=== PATIENT | male | born 1945 | race Caucasian/White ===

== ENCOUNTER → 2019-11-05 | Emergency (ER) | payer OTHER ==
[~2019-11-05] VITALS: Ht 167.6 cm; Wt 77.1 kg
[~2019-11-05] MED LIST: ATORVASTATIN CA20 MG; GLIPIZIDE ER10 MG; INTEGRA PLUS C1 EACH PO; LISINOPRIL10 MG; PROTONIX40 MG PO; VERAPAMIL ER120 MG
== END | disposition home or self-care (01) ==
LOC: ER 20:11
DX: S61.022A Laceration with foreign body of left thumb without damage to nail, initial encounter (principal); W26.8XXA Contact with other sharp object(s), not elsewhere classified, initial encounter; Y93.89 Activity, other specified; Y92.098 Other place in other non-institutional residence as the place of occurrence of the external cause; Y99.8 Other external cause status

== ENCOUNTER 2019-11-13 15:38 | Emergency (ER) | payer OTHER ==
[~2019-11-13] VITALS: Ht 167.6 cm; Wt 77.1 kg
== END 2019-11-13 17:20 | disposition home or self-care (01) ==
LOC: ER 15:38
DX: Z48.02 Encounter for removal of sutures (principal)

== ENCOUNTER → 2020-04-04 11:25 | Outpatient (CLI) | payer OTHER | END | disposition home or self-care (01) | LOC: LAB 11:25 | DX: R97.20 Elevated prostate specific antigen [PSA] (principal) ==

== ENCOUNTER 2020-04-08 10:57 | Outpatient (CLI) | payer OTHER | END 2020-04-08 11:02 | disposition home or self-care (01) | LOC: LAB 10:57 | DX: R33.8 Other retention of urine (principal) ==

== ENCOUNTER 2020-04-10 08:31 | Outpatient (CLI) | payer OTHER | END 2020-04-10 08:38 | disposition home or self-care (01) | LOC: LAB 08:31 | DX: N18.9 Chronic kidney disease, unspecified (principal) ==

== ENCOUNTER 2020-04-11 07:11 | Outpatient (CLI) | payer OTHER | END 2020-04-11 07:17 | disposition home or self-care (01) | LOC: SONOGRAMA 07:11 | DX: R97.20 Elevated prostate specific antigen [PSA] (principal) ==

== ENCOUNTER 2020-04-29 11:07 | Outpatient (CLI) | payer OTHER ==
[~2020-04-29 11:07] MED LIST changes: -METFORMIN HCL500 M3
[2020-04-29] MEDS ORDERED: METFORMIN HCL500 M3 (22:52)
== END 2020-04-29 11:14 | disposition home or self-care (01) ==
LOC: LAB 11:07
PROVIDERS: ATTEND Urology
DX: N30.00 Acute cystitis without hematuria (principal)

== ENCOUNTER 2020-04-29 22:35 | Emergency (ER) | payer OTHER ==
[~2020-04-29] VITALS: Ht 198.1 cm; Wt 63.5 kg
[2020-04-29] MEDS ORDERED: METFORMIN HCL500 M3 (22:52)
== END 2020-04-30 00:01 | disposition home or self-care (01) ==
LOC: ER 22:35
DX: R33.8 Other retention of urine (principal)

== ENCOUNTER → 2020-04-29 | Outpatient (CLI) | payer OTHER ==
[~2020-04-29] MED LIST changes: +METFORMIN HCL500 M3
== END | disposition home or self-care (01) ==
LOC: TOM 12:14
PROVIDERS: ATTEND Urology
DX: C61 Malignant neoplasm of prostate (principal)

== ENCOUNTER 2020-05-01 07:18 | Outpatient (CLI) | payer OTHER ==
[~2020-05-01 07:18] MED LIST changes: +METFORMIN HCL500 M3
== END 2020-05-01 07:25 | disposition home or self-care (01) ==
LOC: NUCLEAR 07:18
PROVIDERS: ATTEND Urology
DX: C61 Malignant neoplasm of prostate (principal)
CPT/HCPCS: 78803; A9503

== ENCOUNTER 2020-05-15 10:38 | Outpatient (CLI) | payer OTHER | END 2020-05-15 10:43 | disposition home or self-care (01) | LOC: LAB 10:38 | PROVIDERS: ATTEND Urology | DX: N30.00 Acute cystitis without hematuria (principal); B96.89 Other specified bacterial agents as the cause of diseases classified elsewhere ==

== ENCOUNTER 2020-05-29 16:32 | Emergency (ER) | payer OTHER ==
[~2020-05-29] VITALS: Ht 167.6 cm; Wt 57.6 kg
== END 2020-05-29 17:21 | disposition home or self-care (01) ==
LOC: ER 16:32
DX: T83.091A Other mechanical complication of indwelling urethral catheter, initial encounter (principal)

== ENCOUNTER 2020-07-04 12:54 | Emergency (ER) | payer OTHER ==
[~2020-07-04] VITALS: Ht 165.1 cm; Wt 59.4 kg
== END 2020-07-04 14:14 | disposition home or self-care (01) ==
LOC: ER 12:54
DX: Z46.6 Encounter for fitting and adjustment of urinary device (principal)

== ENCOUNTER 2020-08-01 20:46 | Emergency (ER) | payer OTHER ==
[~2020-08-01] VITALS: Ht 167.6 cm; Wt 59.0 kg
== END 2020-08-01 22:18 | disposition home or self-care (01) ==
LOC: ER 20:46
DX: T83.018A Breakdown (mechanical) of other urinary catheter, initial encounter (principal); N40.1 Benign prostatic hyperplasia with lower urinary tract symptoms

== ENCOUNTER 2020-09-05 13:07 | Emergency (ER) | payer OTHER ==
[~2020-09-05] VITALS: Ht 167.6 cm; Wt 54.4 kg
== END 2020-09-05 14:04 | disposition home or self-care (01) ==
LOC: ER 13:07
DX: T83.098A Other mechanical complication of other urinary catheter, initial encounter (principal)

== ENCOUNTER → 2020-09-26 12:55 | Outpatient (CLI) | payer OTHER | END | disposition home or self-care (01) | LOC: LAB 12:55 | PROVIDERS: ATTEND Emergency Medicine | DX: D64.89 Other specified anemias (principal); E78.2 Mixed hyperlipidemia; N39.0 Urinary tract infection, site not specified; Z12.11 Encounter for screening for malignant neoplasm of colon; R10.84 Generalized abdominal pain; N40.0 Benign prostatic hyperplasia without lower urinary tract symptoms ==

== ENCOUNTER 2020-09-27 11:29 | Outpatient (CLI) | payer OTHER | END 2020-09-27 15:00 | disposition home or self-care (01) | LOC: LAB 11:29 | PROVIDERS: ATTEND Emergency Medicine | DX: D64.89 Other specified anemias (principal); E78.2 Mixed hyperlipidemia; N39.0 Urinary tract infection, site not specified; Z12.11 Encounter for screening for malignant neoplasm of colon; R10.84 Generalized abdominal pain; N40.0 Benign prostatic hyperplasia without lower urinary tract symptoms ==

== ENCOUNTER 2020-10-10 12:14 | Emergency (ER) | payer OTHER ==
[~2020-10-10] VITALS: Ht 167.6 cm; Wt 64.0 kg
== END 2020-10-10 13:43 | disposition home or self-care (01) ==
LOC: ER 12:14
DX: Z46.6 Encounter for fitting and adjustment of urinary device (principal)

== ENCOUNTER 2020-11-07 11:01 | Emergency (ER) | payer OTHER ==
[~2020-11-07] VITALS: Ht 167.6 cm; Wt 63.5 kg
== END 2020-11-07 12:07 | disposition home or self-care (01) ==
LOC: ER 11:01
DX: N40.0 Benign prostatic hyperplasia without lower urinary tract symptoms (principal); Z46.6 Encounter for fitting and adjustment of urinary device

== ENCOUNTER 2020-12-05 11:42 | Emergency (ER) | payer OTHER ==
[~2020-12-05] VITALS: Ht 167.6 cm; Wt 63.5 kg
== END 2020-12-05 13:24 | disposition home or self-care (01) ==
LOC: ER 11:42
DX: Z46.6 Encounter for fitting and adjustment of urinary device (principal)

== ENCOUNTER 2021-01-05 11:12 | Emergency (ER) | payer OTHER ==
[~2021-01-05] VITALS: Ht 167.6 cm; Wt 63.5 kg
== END 2021-01-05 13:10 | disposition home or self-care (01) ==
LOC: ER 11:12
DX: T83.018A Breakdown (mechanical) of other urinary catheter, initial encounter (principal)

== ENCOUNTER 2021-02-03 10:54 | Emergency (ER) | payer OTHER ==
[~2021-02-03] VITALS: Ht 167.6 cm; Wt 68.0 kg
== END 2021-02-03 11:33 | disposition home or self-care (01) ==
LOC: ER 10:54
DX: T83.018A Breakdown (mechanical) of other urinary catheter, initial encounter (principal); N13.8 Other obstructive and reflux uropathy; N40.0 Benign prostatic hyperplasia without lower urinary tract symptoms

== ENCOUNTER 2021-03-05 11:30 | Emergency (ER) | payer OTHER ==
[~2021-03-05] VITALS: Ht 167.6 cm; Wt 68.0 kg
== END 2021-03-05 14:27 | disposition home or self-care (01) ==
LOC: ER 11:30
DX: T83.091A Other mechanical complication of indwelling urethral catheter, initial encounter (principal)

== ENCOUNTER 2021-04-10 14:09 | Emergency (ER) | payer OTHER ==
[~2021-04-10] VITALS: Ht 167.6 cm; Wt 68.0 kg
== END 2021-04-10 15:10 | disposition home or self-care (01) ==
LOC: ER 14:09
DX: N32.89 Other specified disorders of bladder (principal)

== ENCOUNTER 2021-04-11 08:28 | Emergency (ER) | payer OTHER ==
[~2021-04-11] VITALS: Ht 167.6 cm; Wt 67.6 kg
== END 2021-04-11 11:04 | disposition home or self-care (01) ==
LOC: ER 08:28
DX: Z46.6 Encounter for fitting and adjustment of urinary device (principal)

== ENCOUNTER 2021-05-09 10:19 | Emergency (ER) | payer OTHER ==
[~2021-05-09] VITALS: Ht 167.6 cm; Wt 68.0 kg
== END 2021-05-09 16:00 | disposition home or self-care (01) ==
LOC: ER 10:19
DX: N40.0 Benign prostatic hyperplasia without lower urinary tract symptoms (principal); Z46.6 Encounter for fitting and adjustment of urinary device

== ENCOUNTER 2021-06-13 08:40 | Emergency (ER) | payer OTHER ==
[~2021-06-13] VITALS: Ht 167.6 cm; Wt 68.0 kg
== END 2021-06-13 09:45 | disposition home or self-care (01) ==
LOC: ER 08:40
DX: T83.018A Breakdown (mechanical) of other urinary catheter, initial encounter (principal)

== ENCOUNTER → 2021-07-11 | Emergency (ER) | payer OTHER ==
[~2021-07-11] VITALS: Ht 167.6 cm; Wt 68.0 kg
== END | disposition home or self-care (01) ==
LOC: ER 08:28
DX: Z46.6 Encounter for fitting and adjustment of urinary device (principal)

== ENCOUNTER 2021-08-09 09:03 | Emergency (ER) | payer OTHER ==
[~2021-08-09] VITALS: Ht 167.6 cm; Wt 68.0 kg
== END 2021-08-09 10:40 | disposition home or self-care (01) ==
LOC: ER 09:03
DX: T83.098A Other mechanical complication of other urinary catheter, initial encounter (principal)

== ENCOUNTER 2021-09-05 08:12 | Emergency (ER) | payer OTHER ==
[~2021-09-05] VITALS: Ht 167.6 cm; Wt 68.0 kg
== END 2021-09-05 09:29 | disposition home or self-care (01) ==
LOC: ER 08:12
DX: Z46.6 Encounter for fitting and adjustment of urinary device (principal)

== ENCOUNTER 2021-10-03 08:06 | Emergency (ER) | payer OTHER ==
[~2021-10-03] VITALS: Ht 167.6 cm; Wt 68.0 kg
== END 2021-10-03 09:05 | disposition home or self-care (01) ==
LOC: ER 08:06
DX: Z46.6 Encounter for fitting and adjustment of urinary device (principal)

== ENCOUNTER 2021-11-01 08:06 | Emergency (ER) | payer OTHER ==
[~2021-11-01] VITALS: Ht 167.6 cm; Wt 68.0 kg
== END 2021-11-01 09:32 | disposition home or self-care (01) ==
LOC: ER 08:06
DX: T83.091A Other mechanical complication of indwelling urethral catheter, initial encounter (principal); N40.0 Benign prostatic hyperplasia without lower urinary tract symptoms; R97.20 Elevated prostate specific antigen [PSA]

== ENCOUNTER 2021-12-06 11:02 | Emergency (ER) | payer OTHER ==
[~2021-12-06] VITALS: Ht 167.6 cm; Wt 68.0 kg
== END 2021-12-06 12:07 | disposition home or self-care (01) ==
LOC: ER 11:02
DX: R33.8 Other retention of urine (principal); N40.0 Benign prostatic hyperplasia without lower urinary tract symptoms

== ENCOUNTER 2022-01-10 09:13 | Emergency (ER) | payer OTHER ==
[~2022-01-10] VITALS: Ht 167.6 cm; Wt 70.3 kg
== END 2022-01-10 11:22 | disposition home or self-care (01) ==
LOC: ER 09:13
DX: Z46.6 Encounter for fitting and adjustment of urinary device (principal); I10 Essential (primary) hypertension; E11.9 Type 2 diabetes mellitus without complications; N40.0 Benign prostatic hyperplasia without lower urinary tract symptoms

== ENCOUNTER 2022-02-07 09:01 | Emergency (ER) | payer OTHER ==
[~2022-02-07] VITALS: Ht 167.6 cm; Wt 66.2 kg
== END 2022-02-07 11:01 | disposition home or self-care (01) ==
LOC: ER 09:01
DX: T83.098D Other mechanical complication of other urinary catheter, subsequent encounter (principal); N40.1 Benign prostatic hyperplasia with lower urinary tract symptoms

== ENCOUNTER 2022-03-07 09:10 | Emergency (ER) | payer OTHER ==
[~2022-03-07] VITALS: Ht 167.6 cm; Wt 65.8 kg
== END 2022-03-07 10:16 | disposition home or self-care (01) ==
LOC: ER 09:10
DX: T83.9XXA Unspecified complication of genitourinary prosthetic device, implant and graft, initial encounter (principal)

== ENCOUNTER 2022-03-27 16:03 | Emergency (ER) | payer OTHER ==
[~2022-03-27] VITALS: Ht 167.6 cm; Wt 66.2 kg
[~2022-03-27 16:03] MED LIST changes: -CIPRO500 MG; -LOKELMA10 GM PO
[2022-03-27] MEDS ORDERED: CIPRO500 MG (16:09)
[2022-03-27] MEDS ORDERED: LOKELMA10 GM PO (19:06)
== END 2022-03-27 19:41 | disposition home or self-care (01) ==
LOC: ER 16:03
DX: R55 Syncope and collapse (principal); Z79.84 Long term (current) use of oral hypoglycemic drugs; I10 Essential (primary) hypertension; E11.9 Type 2 diabetes mellitus without complications; E87.5 Hyperkalemia; E11.65 Type 2 diabetes mellitus with hyperglycemia

== ENCOUNTER → 2022-03-27 | Emergency (ER) | payer OTHER ==
[~2022-03-27] VITALS: Ht 167.6 cm; Wt 67.1 kg
[~2022-03-27] MED LIST changes: +CIPRO500 MG; +LOKELMA10 GM PO
== END | disposition left against medical advice (07) ==
LOC: ER 22:51
DX: Z53.21 Procedure and treatment not carried out due to patient leaving prior to being seen by health care provider (principal)

== ENCOUNTER 2022-04-10 12:57 | Emergency (ER) | payer OTHER ==
[~2022-04-10] VITALS: Ht 167.6 cm; Wt 66.7 kg
[~2022-04-10 12:57] MED LIST changes: +CIPRO500 MG; +LOKELMA10 GM PO
== END 2022-04-10 14:27 | disposition home or self-care (01) ==
LOC: ER 12:57
DX: N40.0 Benign prostatic hyperplasia without lower urinary tract symptoms (principal); E11.9 Type 2 diabetes mellitus without complications; Z79.84 Long term (current) use of oral hypoglycemic drugs; I10 Essential (primary) hypertension

== ENCOUNTER 2022-05-08 08:03 | Emergency (ER) | payer OTHER ==
[~2022-05-08] VITALS: Ht 167.6 cm; Wt 65.8 kg
== END 2022-05-08 12:10 | disposition home or self-care (01) ==
LOC: ER 08:03
DX: N40.0 Benign prostatic hyperplasia without lower urinary tract symptoms (principal); T83.89XA Other specified complication of genitourinary prosthetic devices, implants and grafts, initial encounter; I10 Essential (primary) hypertension; E11.9 Type 2 diabetes mellitus without complications

== ENCOUNTER → 2022-06-05 | Emergency (ER) | payer OTHER ==
[~2022-06-05] VITALS: Ht 167.6 cm; Wt 67.1 kg
== END | disposition home or self-care (01) ==
LOC: ER 08:44
DX: N40.1 Benign prostatic hyperplasia with lower urinary tract symptoms (principal); T83.011A Breakdown (mechanical) of indwelling urethral catheter, initial encounter

== ENCOUNTER 2022-07-04 08:01 | Emergency (ER) | payer OTHER ==
[~2022-07-04] VITALS: Ht 167.6 cm; Wt 65.8 kg
== END 2022-07-04 10:04 | disposition home or self-care (01) ==
LOC: ER 08:01
DX: T83.9XXA Unspecified complication of genitourinary prosthetic device, implant and graft, initial encounter (principal); N40.0 Benign prostatic hyperplasia without lower urinary tract symptoms; E11.9 Type 2 diabetes mellitus without complications; Z79.84 Long term (current) use of oral hypoglycemic drugs; I10 Essential (primary) hypertension

== ENCOUNTER 2022-07-12 13:43 | Emergency (ER) | payer OTHER ==
[~2022-07-12] VITALS: Ht 172.7 cm; Wt 66.2 kg
== END 2022-07-12 15:12 | disposition home or self-care (01) ==
LOC: ER 13:43
DX: R33.9 Retention of urine, unspecified (principal); B96.20 Unspecified Escherichia coli [E. coli] as the cause of diseases classified elsewhere; B96.29 Other Escherichia coli [E. coli] as the cause of diseases classified elsewhere; I10 Essential (primary) hypertension; E11.9 Type 2 diabetes mellitus without complications; Z79.84 Long term (current) use of oral hypoglycemic drugs

== ENCOUNTER 2022-08-30 20:57 | Emergency (ER) | payer OTHER ==
[~2022-08-30] VITALS: Ht 167.6 cm; Wt 65.8 kg
== END 2022-08-30 22:49 | disposition home or self-care (01) ==
LOC: ER 20:57
DX: R33.9 Retention of urine, unspecified (principal); T83.011A Breakdown (mechanical) of indwelling urethral catheter, initial encounter; I10 Essential (primary) hypertension

== ENCOUNTER 2022-11-06 08:06 | Emergency (ER) | payer OTHER ==
[~2022-11-06] VITALS: Ht 167.6 cm; Wt 67.1 kg
== END 2022-11-06 09:35 | disposition home or self-care (01) ==
LOC: ER 08:06
DX: R33.9 Retention of urine, unspecified (principal); Z46.6 Encounter for fitting and adjustment of urinary device; E11.9 Type 2 diabetes mellitus without complications; Z79.84 Long term (current) use of oral hypoglycemic drugs; I10 Essential (primary) hypertension

== ENCOUNTER 2022-12-09 08:51 | Emergency (ER) | payer OTHER ==
[~2022-12-09] VITALS: Ht 167.6 cm; Wt 65.8 kg
== END 2022-12-09 09:32 | disposition home or self-care (01) ==
LOC: ER 08:51
DX: T83.9XXA Unspecified complication of genitourinary prosthetic device, implant and graft, initial encounter (principal); I10 Essential (primary) hypertension; E11.9 Type 2 diabetes mellitus without complications; Z79.84 Long term (current) use of oral hypoglycemic drugs

== ENCOUNTER → 2022-12-21 13:16 | Outpatient (CLI) | payer OTHER | END | disposition home or self-care (01) | LOC: LAB 13:16 | PROVIDERS: ATTEND Urology | DX: N30.00 Acute cystitis without hematuria (principal) ==

== ENCOUNTER 2023-01-15 07:05 | Emergency (ER) | payer OTHER ==
[~2023-01-15] VITALS: Ht 167.6 cm; Wt 65.8 kg
== END 2023-01-15 08:05 | disposition home or self-care (01) ==
LOC: ER 07:05
DX: N39.0 Urinary tract infection, site not specified (principal); T83.098A Other mechanical complication of other urinary catheter, initial encounter; N40.1 Benign prostatic hyperplasia with lower urinary tract symptoms

== ENCOUNTER 2023-02-12 12:37 | Emergency (ER) | payer OTHER ==
[~2023-02-12] VITALS: Ht 167.6 cm; Wt 65.8 kg
== END 2023-02-12 14:06 | disposition home or self-care (01) ==
LOC: ER 12:37
DX: T83.098A Other mechanical complication of other urinary catheter, initial encounter (principal); N40.0 Benign prostatic hyperplasia without lower urinary tract symptoms; E11.65 Type 2 diabetes mellitus with hyperglycemia; I10 Essential (primary) hypertension

== ENCOUNTER → 2023-02-21 13:39 | Outpatient (CLI) | payer OTHER | END | disposition home or self-care (01) | LOC: LAB 13:39 | PROVIDERS: ATTEND Urology | DX: N30.00 Acute cystitis without hematuria (principal) ==

== ENCOUNTER 2023-03-26 07:03 | Emergency (ER) | payer OTHER ==
[~2023-03-26] VITALS: Ht 167.6 cm; Wt 68.0 kg
== END 2023-03-26 08:53 | disposition home or self-care (01) ==
LOC: ER 07:03
DX: T83.098A Other mechanical complication of other urinary catheter, initial encounter (principal); N40.0 Benign prostatic hyperplasia without lower urinary tract symptoms; I10 Essential (primary) hypertension; E11.9 Type 2 diabetes mellitus without complications; Z79.84 Long term (current) use of oral hypoglycemic drugs; R33.9 Retention of urine, unspecified

== ENCOUNTER 2023-04-30 08:29 | Emergency (ER) | payer OTHER ==
[~2023-04-30] VITALS: Ht 167.6 cm; Wt 65.8 kg
== END 2023-04-30 09:18 | disposition home or self-care (01) ==
LOC: ER 08:29
DX: T83.018A Breakdown (mechanical) of other urinary catheter, initial encounter (principal); R33.8 Other retention of urine

== ENCOUNTER 2023-05-16 09:36 | Emergency (ER) | payer OTHER ==
[~2023-05-16] VITALS: Ht 167.6 cm; Wt 68.0 kg
[2023-05-16] MEDS ORDERED: TAMS0.4C PO (09:45)
== END 2023-05-16 10:32 | disposition home or self-care (01) ==
LOC: ER 09:36
DX: T83.091A Other mechanical complication of indwelling urethral catheter, initial encounter (principal); E78.00 Pure hypercholesterolemia, unspecified; I10 Essential (primary) hypertension; E11.9 Type 2 diabetes mellitus without complications; Z79.84 Long term (current) use of oral hypoglycemic drugs

== ENCOUNTER 2023-05-26 16:04 | Outpatient (CLI) | payer OTHER ==
[~2023-05-26 16:04] MED LIST changes: +TAMS0.4C PO
== END 2023-05-26 16:10 | disposition home or self-care (01) ==
LOC: PPH VACUNA 16:04 → LAB 16:04
PROVIDERS: ATTEND Urology
DX: E55.9 Vitamin D deficiency, unspecified (principal); I10 Essential (primary) hypertension; D64.9 Anemia, unspecified; E78.5 Hyperlipidemia, unspecified; N39.0 Urinary tract infection, site not specified; E11.69 Type 2 diabetes mellitus with other specified complication; E03.9 Hypothyroidism, unspecified; R19.5 Other fecal abnormalities; R79.1 Abnormal coagulation profile

== ENCOUNTER 2023-06-01 08:00 | Inpatient (IN) | payer OTHER ==
[~2023-06-01] VITALS: Ht 167.6 cm; Wt 68.0 kg
[2023-06-08] MEDS ORDERED: FINASTERIDE5 MG (08:02)
[2023-06-08] MEDS ORDERED: NITROFURANTOIN100 M1 (08:03)
== END 2023-06-09 13:19 | disposition home or self-care (01) | DRG 714 ==
LOC: SURH 06-07 08:00 → SURG 06-08 06:00 → O/R 06-08 06:00 → SURH 06-08 08:00 → SURG 06-08 15:00
PROVIDERS: ADMIT Urology; ATTEND Urology
PROC: 0VT08ZZ Resection of Prostate, Via Natural or Artificial Opening Endoscopic (ICD-10-PCS; principal; 2023-06-08 10:30)
DX: C61 Malignant neoplasm of prostate (principal); Z20.822 Contact with and (suspected) exposure to COVID-19; R33.8 Other retention of urine

== ENCOUNTER 2023-07-21 11:37 | Outpatient (CLI) | payer OTHER ==
[~2023-07-21 11:37] MED LIST changes: +FINASTERIDE5 MG; +NITROFURANTOIN100 M1
== END 2023-07-21 11:39 | disposition home or self-care (01) ==
LOC: LAB 11:37
PROVIDERS: ATTEND Urology
DX: N39.0 Urinary tract infection, site not specified (principal)

== ENCOUNTER 2024-02-22 12:32 | Emergency (ER) | payer OTHER ==
[~2024-02-22] VITALS: Ht 167.6 cm; Wt 66.7 kg
[2024-02-22 14:53] LABS: HEMATOCRIT 35.6 % (39.0-48.0); HEMOGLOBIN 12.2 g/dL (13-16.00); MEAN CELL VOLUME 90.8 fL (80.0-100.00); MEAN CORPUSCULAR HEMOGLOBIN 31.2 pg (27.00-32.0); MEAN CORPUSCULAR HGB CONC 34.3 g/dl (32.0-36.0); PLATELET COUNT 245 K/uL (150-450); RED BLOOD COUNT 3.93 M/uL (4.00-6.00); RED CELL DISTRIBUTION WIDTH 12.7 % (11.5-14.5)
[2024-02-22 14:55] LABS: INR 1.04; PROTHROMBIN TIME 10.9 SECONDS (9.0-11.5)
[2024-02-22 15:16] LABS: ALBUMIN 3.6 gm/dL (3.4-5.0); BILIRUBIN TOTAL 0.72 mg/dL (0.3-1.2); BILIRUBIN,CONJUGATED 0.17 mg/dL (0.0-0.2); BILIRUBIN,UNCONJUGATED 0.55 mg/dL (0.0-0.6); CALCIUM 9.4 mg/dL (8.5-10.1); CREATININE SERUM 1.18 mg/dL (0.70-1.30); GFR 60.02; GLOBULINA 4.5 G/DL (2.4-3.5); POTASSIUM 5.11 mEq/L (3.5-5.1); TOTAL PROTEIN 8.1 gm/dL (6.4-8.2)
== END 2024-02-22 23:40 | disposition home or self-care (01) ==
LOC: ER 12:32
PROVIDERS: Emergency Medicine
DX: K64.8 Other hemorrhoids (principal); K62.5 Hemorrhage of anus and rectum; Z85.46 Personal history of malignant neoplasm of prostate; I10 Essential (primary) hypertension; E11.65 Type 2 diabetes mellitus with hyperglycemia
CPT/HCPCS: 36415; 74177; Q9965

== ENCOUNTER 2024-03-09 09:24 | Emergency (ER) | payer OTHER ==
[~2024-03-09] VITALS: Ht 167.6 cm; Wt 67.6 kg
[2024-03-09] MEDS ORDERED: VERELAN PM200 MG (09:58)
[2024-03-09] MEDS ORDERED: REMINYL8 MG PO (09:59)
== END 2024-03-09 10:45 | disposition home or self-care (01) ==
LOC: ER 09:25
DX: K64.9 Unspecified hemorrhoids (principal); E11.9 Type 2 diabetes mellitus without complications; Z79.84 Long term (current) use of oral hypoglycemic drugs; I10 Essential (primary) hypertension; E78.00 Pure hypercholesterolemia, unspecified

== ENCOUNTER → 2025-02-16 | Emergency (ER) | payer OTHER ==
[~2025-02-16] VITALS: Ht 167.6 cm; Wt 65.8 kg
[~2025-02-16] MED LIST changes: +REMINYL8 MG PO; +VERELAN PM200 MG
== END | disposition home or self-care (01) ==
LOC: ER 14:12
DX: S72.8X1A Other fracture of right femur, initial encounter for closed fracture (principal); W19.XXXA Unspecified fall, initial encounter; Y93.89 Activity, other specified; Y92.89 Other specified places as the place of occurrence of the external cause; Y99.8 Other external cause status; E11.9 Type 2 diabetes mellitus without complications; Z79.84 Long term (current) use of oral hypoglycemic drugs

== ENCOUNTER 2025-02-18 20:42 | Inpatient (IN) | payer OTHER ==
[~2025-02-18] VITALS: Ht 165.1 cm; Wt 90.7 kg
[2025-02-18] MEDS ORDERED: 0.9 % SODIUM CHLORIDE 1,000 ML IV SCH (22:15)
[2025-02-18] MEDS ORDERED: INSULIN LISPRO 1,000 UNIT/10 ML UNITS SUBCUTANEO PRN (23:00)
[2025-02-18] MEDS ORDERED: MORPHINE SULFATE 2 MG/ML CARTRIDGE IV PRN (23:00)
[2025-02-18] MEDS ORDERED: DEXTROSE 50 % IN WATER 0.5 G/ML DISP.SYRIN IV PRN (23:00)
[2025-02-18 23:16] LABS: HEMATOCRIT 37.3 % (39.0-48.0); HEMOGLOBIN 12.4 g/dL (13-16.00); MEAN CELL VOLUME 91.3 fL (80.0-100.00); MEAN CORPUSCULAR HEMOGLOBIN 30.2 pg (27.00-32.0); MEAN CORPUSCULAR HGB CONC 33.1 g/dl (32.0-36.0); PLATELET COUNT 200 K/uL (150-450); RED BLOOD COUNT 4.09 M/uL (4.00-6.00)
[2025-02-18 23:36] LABS: INR 1.05; PROTHROMBIN TIME 11.4 SECONDS (9.0-11.5)
[2025-02-18 23:38] LABS: ALBUMIN 3.3 gm/dL (3.4-5.0); BILIRUBIN TOTAL 0.59 mg/dL (0.3-1.2); CREATININE SERUM 1.19 mg/dL (0.70-1.30); GFR 59.28; GLOBULINA 4.1 G/DL (2.4-3.5); POTASSIUM 4.29 mEq/L (3.5-5.1); TOTAL PROTEIN 7.4 gm/dL (6.4-8.2)
[2025-02-19 00:41] LABS: PH,URINE 5.5 (5.0-8.0); URINE APPEARANCE Clear; URINE BILIRRUBIN Negative (NEGATIVE); URINE BLOOD Negative; URINE COLOR Yellow; URINE GLUCOSE Negative (NEGATIVE); URINE KETONE Trace (NEGATIVE); URINE LEUKOCYTE Negative; URINE NITRATE Negative; URINE PROTEIN Trace (NEGATIVE)
[2025-02-19 00:46] LABS: URINE BACTERIA 13.4 uL (0.0-1933); URINE CAST 0.29 uL (0.0-1.40); URINE RBC 1.4 uL (0.0-20.8); URINE WBC 2.3 uL (0.0-23.2)
[2025-02-19 05:49] VITALS: BP 158/89; O2SAT 97
[2025-02-19] MEDS ORDERED: MORPHINE SULFATE 4 MG/ML CARTRIDGE IV PRN ×2 (07:00→19:30)
[2025-02-19 08:00] VITALS: BP 130/71; O2SAT 99
[2025-02-19] MEDS ORDERED: ATORVASTATIN CALCIUM 20 MG TABLET PO SCH (09:00)
[2025-02-19] MEDS ORDERED: FAMOTIDINE/PF 20 MG in 0.9 % SODIUM CHLORIDE 8 ML IV PUSH SCH (09:00)
[2025-02-19] MEDS ORDERED: FINASTERIDE 5 MG TABLET PO SCH (09:00)
[2025-02-19] MEDS ORDERED: LISINOPRIL 10 MG TABLET PO SCH (09:00)
[2025-02-19] MEDS ORDERED: INSULIN LISPRO 1,000 UNIT/10 ML UNITS SUBCUTANEO PRN (09:18)
[2025-02-19] MEDS ORDERED: TAMSULOSIN HCL 0.4 MG CAP PO NR (11:00)
[2025-02-19] MEDS ORDERED: VERAPAMIL HCL 40 MG TABLET PO SCH (13:00)
[2025-02-19] MEDS ORDERED: ENOXAPARIN SODIUM 40 MG/0.4 ML SYRINGE SUBCUTANEO NR (13:00)
[2025-02-19] MEDS ORDERED: ONDANSETRON HCL 2 MG/ML VIAL IV PRN (19:30)
[2025-02-19] MEDS ORDERED: OxyCODONE HCL 5 MG TABLET (ROXICODONE) PO PRN (19:30)
[2025-02-19] MEDS ORDERED: SODIUM CHLORIDE 0.45 % 1,000 ML IV SCH (19:30)
[2025-02-19] MEDS ORDERED: MORPHINE SULFATE 2 MG/ML CARTRIDGE IV ONE ×2 (20:00→20:30)
[2025-02-19] MEDS ORDERED: INSULIN GLARGINE,HUM.REC.ANLOG 1,000 UNITS/10 ML UNITS SUBCUTANEO SCH (21:00)
[2025-02-19 22:00] VITALS: BP 127/66; O2SAT 96
[2025-02-20] MEDS ORDERED: ACETAMINOPHEN 500 MG GEL..CAP PO SCH
[2025-02-20 00:19] VITALS: BP 130/64; O2SAT 97
[2025-02-20] MEDS ORDERED: CEFAZOLIN SODIUM 1,000 MG VIAL IV SCH (01:00)
[2025-02-20] MEDS ORDERED: GABAPENTIN 300 MG CAPSULE PO SCH (01:00)
[2025-02-20 05:19] LABS: MEAN CELL VOLUME 91.4 fL (80.0-100.00); PLATELET COUNT 177 K/uL (150-450); RED BLOOD COUNT 3.83 M/uL (4.00-6.00); RED CELL DISTRIBUTION WIDTH 12.7 % (11.5-14.5)
[2025-02-20 05:21] LABS: HEMOGLOBIN 11.5 g/dL (13-16.00)
[2025-02-20 06:02] LABS: CREATININE SERUM 0.74 mg/dL (0.70-1.30); GFR 102.56; POTASSIUM 5.07 mEq/L (3.5-5.1)
[2025-02-20] MEDS ORDERED: PERCOCET 5-3251 EACH PO (07:15)
[2025-02-20] MEDS ORDERED: DUI500 PO (07:15)
[2025-02-20] MEDS ORDERED: ELIQUIS2.5 MG PO (07:15)
[2025-02-20 08:00] VITALS: BP 127/63; O2SAT 96
[2025-02-20] MEDS ORDERED: TAMSULOSIN HCL 0.4 MG CAP PO SCH (09:00)
[2025-02-20] MEDS ORDERED: APIXABAN 2.5 MG TABLET PO SCH (09:00)
[2025-02-20] MEDS ORDERED: SENNOSIDES 1 TAB TABLET PO SCH (09:00)
[2025-02-20 17:23] VITALS: BP 141/69; O2SAT 96
[2025-02-20 23:59] VITALS: BP 133/73; O2SAT 96
[2025-02-21 07:54] VITALS: BP 147/68; O2SAT 97
[2025-02-21] MEDS ORDERED: IRON FUM,PS/FOLIC ACID/VITC/B3 1 CAP CAPSULE PO SCH (09:00)
[2025-02-21 11:27] LABS: HEMATOCRIT 34.3 % (39.0-48.0); HEMOGLOBIN 11.4 g/dL (13-16.00); MEAN CELL VOLUME 90.8 fL (80.0-100.00); MEAN CORPUSCULAR HEMOGLOBIN 30.2 pg (27.00-32.0); MEAN CORPUSCULAR HGB CONC 33.2 g/dl (32.0-36.0); PLATELET COUNT 191 K/uL (150-450); RED BLOOD COUNT 3.77 M/uL (4.00-6.00)
[2025-02-21 16:12] VITALS: BP 95/60; O2SAT 97
== END 2025-02-21 17:39 | disposition home or self-care (01) | DRG 522 ==
LOC: ER 20:44 → SURG 22:56
PROVIDERS: General Practice; Orthopaedic Surgery; ADMIT Student in an Organized Health Care Education/Training Program; ATTEND Student in an Organized Health Care Education/Training Program
PROC: 0QB60ZZ Excision of Right Upper Femur, Open Approach (ICD-10-PCS; 2025-02-19)
PROC: 0QU60JZ Supplement Right Upper Femur with Synthetic Substitute, Open Approach (ICD-10-PCS; 2025-02-19)
PROC: 0SRR0JZ Replacement of Right Hip Joint, Femoral Surface with Synthetic Substitute, Open Approach (ICD-10-PCS; principal; 2025-02-19 16:15)
DX: S72.031A Displaced midcervical fracture of right femur, initial encounter for closed fracture (principal); W17.89XA Other fall from one level to another, initial encounter; Y92.89 Other specified places as the place of occurrence of the external cause; E11.9 Type 2 diabetes mellitus without complications; Z79.4 Long term (current) use of insulin

== ENCOUNTER 2025-08-11 13:21 | Inpatient (IN) | payer OTHER ==
[~2025-08-11] VITALS: Ht 152.4 cm; Wt 63.5 kg
[~2025-08-11 13:21] MED LIST changes: +DUI500 PO; +ELIQUIS2.5 MG PO; +PERCOCET 5-3251 EACH PO
--- NOTE | 2025-08-11 13:38 | NUR ---
PACIENTE ALERTA Y ORIENTADO X 3. REFIERE SANGRADO RECTAL DESDE LA MANANA, AL EVACUAR EN 3 OCASIONES.
[2025-08-11] MEDS ORDERED: 0.9 % SODIUM CHLORIDE 1,000 ML IV SCH ×2 (15:10→22:15)
--- NOTE | 2025-08-11 15:19 | NUR ---
SE RECIBE PACIENTE ALERTA Y ORIENTADO X3 EN AREA DE CRITICO CAMA #1 EN POSICION SEMI SENTADO CON BARANDAS ELEVADAS. AL MOMENTO SE OBSERVA PACIENTE CANALIZADO CON ANGIOS EN BRAZO DERECHO CON ANGIOS #20 Y #18 CON IVF DE 0.9NSS BAJANDO A 150. SE MANTIENE BAJO OBSERVACION PARA CONTINUACION DE TRATAMIENTO.
[2025-08-11 15:27] LABS: BASO % 0.4 % (0.1-1.2); EOS # 0.05 (0.04-0.54); EOS % 0.6 % (0.7-7.0); LYMPH # 1.82 (1.18-3.74); LYMPH % 20.4 % (19.3-53.1); MEAN PLATELET VOLUME 10.80 fl (9.4-12.4); MONO # 0.99 (0.24-0.82); MONO % 11.1 % (4.7-12.5); NEUT # 5.98 (1.56-6.13); NEUT % 66.9 % (34.0-71.1); RED CELL DISTRIBUTION WIDTH 12.0 % (11.6-14.4)
[2025-08-11 15:41] LABS: INR 1.09
[2025-08-11 15:48] LABS: ALT/SGPT 10.0 U/L (12-78); AST/SGOT 8.0 U/L (15-37); BILIRUBIN TOTAL 0.57 mg/dL (0.3-1.2); BUN CREA RATIO 17.0 (7.0-25.0); CREATININE SERUM 1.14 mg/dL (0.70-1.30); GFR 62.12; GLOBULINA 3.6 G/DL (2.4-3.5); OSMOLALITY SERUM 294.0 MOSM/KG (275-295)
[2025-08-11 15:52] LABS: GLUCOSE FASTING 392.0 mg/dL (65-100)
[2025-08-11] MEDS ORDERED: CIPROFLOXACIN IN 5 % DEXTROSE 200 ML IV SCH (22:08)
[2025-08-11] MEDS ORDERED: PANTOPRAZOLE SODIUM 40 MG in 0.9 % SODIUM CHLORIDE 8 ML IV PUSH SCH (22:09)
[2025-08-11] MEDS ORDERED: MORPHINE SULFATE 2 MG/ML CARTRIDGE IV PRN (22:15)
[2025-08-11] MEDS ORDERED: DEXTROSE 50 % IN WATER 0.5 G/ML DISP.SYRIN IV PRN (22:15)
[2025-08-11] MEDS ORDERED: ONDANSETRON HCL 4 MG in 0.9 % SODIUM CHLORIDE 50 ML IV PRN (22:15)
[2025-08-11] MEDS ORDERED: INSULIN LISPRO 1,000 UNIT/10 ML UNITS SUBCUTANEO PRN (22:15)
[2025-08-11] MEDS ORDERED: LISINOPRIL 10 MG TABLET PO SCH (22:34)
[2025-08-11 23:09] VITALS: BP 125/66
[2025-08-12 01:43] VITALS: BP 119/58; O2SAT 97
[2025-08-12 02:22] VITALS: BP 127/71; O2SAT 97
[2025-08-12 06:42] LABS: BASO % 0.3 % (0.1-1.2); EOS # 0.07 (0.04-0.54); EOS % 1.1 % (0.7-7.0); LYMPH # 0.79 (1.18-3.74); LYMPH % 12.1 % (19.3-53.1); MEAN PLATELET VOLUME 10.30 fl (9.4-12.4); MONO # 0.79 (0.24-0.82); NEUT # 4.80 (1.56-6.13); NEUT % 73.8 % (34.0-71.1); RED CELL DISTRIBUTION WIDTH 11.9 % (11.6-14.4)
[2025-08-12 06:51] LABS: MONO % 12.1 % (4.7-12.5)
[2025-08-12 07:11] LABS: ALT/SGPT 8.0 U/L (12-78); AST/SGOT 9.0 U/L (15-37); BILIRUBIN TOTAL 0.6 mg/dL (0.3-1.2); BUN CREA RATIO 18.0 (7.0-25.0); CREATININE SERUM 0.71 mg/dL (0.70-1.30); GFR 107.3; GLOBULINA 2.9 G/DL (2.4-3.5); GLUCOSE FASTING 110.0 mg/dL (65-100); OSMOLALITY SERUM 288.0 MOSM/KG (275-295)
[2025-08-12 08:07] VITALS: BP 126/79; O2SAT 96
[2025-08-12] MEDS ORDERED: SODIUM CHLORIDE 0.45 % 1,000 ML IV SCH (10:15)
[2025-08-12 15:17] LABS: URINE APPEARANCE Clear; URINE BILIRRUBIN Negative (NEGATIVE); URINE BLOOD Negative; URINE COLOR Yellow; URINE KETONE Negative (NEGATIVE); URINE LEUKOCYTE Negative; URINE NITRATE Negative; URINE PROTEIN Negative (NEGATIVE); URINE UROBILINOGEN 0.2 E.U./dl
[2025-08-12 15:20] LABS: URINE BACTERIA 5.9 uL (0.0-1933)
[2025-08-12 15:30] LABS: URINE CAST 0.14 uL (0.0-1.40); URINE EPITHELIAL CELLS 0.7 uL (0.0-38.8); URINE GLUCOSE 500 MG/DL (NEGATIVE); URINE RBC 0.0 uL (0.0-20.8); URINE WBC 0.7 uL (0.0-23.2)
[2025-08-12 15:30] LABS: ob POSITIVE (NEGATIVE)
[2025-08-12 16:00] VITALS: BP 126/75; BP 80/45; O2SAT 95; O2SAT 97
[2025-08-12 16:16] VITALS: BP 80/45
[2025-08-12 21:15] VITALS: BP 90/52
[2025-08-13] VITALS (7 sets, daily range): BP systolic 77–115; BP diastolic 44–63; O2SAT 94–99
[2025-08-13] MEDS ORDERED: 0.9 % SODIUM CHLORIDE 1,000 ML IV ONE (09:45)
[2025-08-13 09:59] LABS: BASO % 0.1 % (0.1-1.2); EOS # 0.02 (0.04-0.54); EOS % 0.2 % (0.7-7.0); LYMPH # 0.36 (1.18-3.74); LYMPH % 4.1 % (19.3-53.1); MEAN PLATELET VOLUME 10.30 fl (9.4-12.4); MONO # 0.48 (0.24-0.82); MONO % 5.5 % (4.7-12.5); NEUT # 7.75 (1.56-6.13); NEUT % 88.6 % (34.0-71.1); RED CELL DISTRIBUTION WIDTH 12.1 % (11.6-14.4)
[2025-08-13 10:14] LABS: INR 1.13
[2025-08-13 10:51] LABS: AST/SGOT 8 U/L (15-37); BILIRUBIN TOTAL 0.33 mg/dL (0.3-1.2); BUN CREA RATIO 17 (7.0-25.0); CREATININE SERUM 0.81 mg/dL (0.70-1.30); GFR 92.16; GLOBULINA 2.3 G/DL (2.4-3.5)
[2025-08-13 10:52] LABS: ALT/SGPT < 6 U/L (12-78); GLUCOSE FASTING 243 mg/dL (65-100); OSMOLALITY SERUM 297 MOSM/KG (275-295)
[2025-08-13 11:49] LABS: ABG PH 7.298 (7.35-7.45); ABG PO2 207.7 mmHg (80-100)
[2025-08-13 11:50] LABS: BICARBONATE 25.5 mmol/l (23-25)
[2025-08-13 11:51] LABS: o2 35 %
[2025-08-13] MEDS ORDERED: NOREPINEPHRINE BITARTRATE 8 MG in DEXTROSE 5 % IN WATER 250 ML IV SCH (13:15)
[2025-08-13] MEDS ORDERED: 0.9 % SODIUM CHLORIDE 1,000 ML IV SCH (13:15)
[2025-08-13 15:48] LABS: ABG PH 7.355 (7.35-7.45); ABG PO2 92.1 mmHg (80-100); BICARBONATE 22.4 mmol/l (23-25)
[2025-08-13 15:49] LABS: o2 21 %
[2025-08-14] VITALS (11 sets, daily range): BP systolic 99–129; BP diastolic 54–74; O2SAT 89–100
[2025-08-14] MEDS ORDERED: PANTOPRAZOLE SODIUM 40 MG/VIAL VIAL IV SCH (07:00)
[2025-08-14] MEDS ORDERED: OCTREOTIDE ACETATE 0.5 MG/ML (500MCG/ML) AMPUL IV SCH (07:00)
[2025-08-14 07:01] LABS: BASO % 0.1 % (0.1-1.2); EOS # 0.00 (0.04-0.54); EOS % 0.0 % (0.7-7.0); LYMPH # 0.82 (1.18-3.74); LYMPH % 8.1 % (19.3-53.1); MEAN PLATELET VOLUME 10.40 fl (9.4-12.4); MONO # 0.78 (0.24-0.82); MONO % 7.7 % (4.7-12.5); NEUT # 8.29 (1.56-6.13); NEUT % 82.1 % (34.0-71.1); RED CELL DISTRIBUTION WIDTH 12.8 % (11.6-14.4)
[2025-08-14] MEDS ORDERED: PANTOPRAZOLE SODIUM 80 MG in 0.9 % SODIUM CHLORIDE 100 ML IV SCH (07:45)
[2025-08-14] MEDS ORDERED: OCTREOTIDE ACETATE 1,250 MCG in 0.9 % SODIUM CHLORIDE 250 ML IV SCH (09:00)
[2025-08-15] VITALS (7 sets, daily range): BP systolic 101–122; BP diastolic 59–72; O2SAT 98–100
[2025-08-15 04:25] LABS: BASO % 0.1 % (0.1-1.2); EOS # 0.06 (0.04-0.54); EOS % 0.6 % (0.7-7.0); LYMPH # 0.72 (1.18-3.74); LYMPH % 7.3 % (19.3-53.1); MEAN PLATELET VOLUME 10.50 fl (9.4-12.4); MONO # 1.00 (0.24-0.82); MONO % 10.2 % (4.7-12.5); NEUT # 7.77 (1.56-6.13); NEUT % 79.4 % (34.0-71.1); RED CELL DISTRIBUTION WIDTH 13.2 % (11.6-14.4)
[2025-08-15] MEDS ORDERED: RINGERS SOLUTION,LACTATED 1,000 ML IV SCH (09:00)
[2025-08-16] VITALS (9 sets, daily range): BP systolic 99–1123; BP diastolic 60–87; O2SAT 98–100
[2025-08-16 16:50] LABS: BASO % 0.2 % (0.1-1.2); EOS # 0.13 (0.04-0.54); EOS % 1.3 % (0.7-7.0); LYMPH # 0.58 (1.18-3.74); LYMPH % 5.8 % (19.3-53.1); MEAN PLATELET VOLUME 9.40 fl (9.4-12.4); MONO # 1.04 (0.24-0.82); MONO % 10.4 % (4.7-12.5); NEUT # 8.04 (1.56-6.13); NEUT % 80.8 % (34.0-71.1); RED CELL DISTRIBUTION WIDTH 13.1 % (11.6-14.4)
[2025-08-16 17:18] LABS: BUN CREA RATIO 14.0 (7.0-25.0); CREATININE SERUM 0.87 mg/dL (0.70-1.30); GFR 84.87; GLUCOSE FASTING 174.0 mg/dL (65-100); OSMOLALITY SERUM 287.0 MOSM/KG (275-295)
[2025-08-16] MEDS ORDERED: POTASSIUM PHOS,M-BASIC-D-BASIC 18 MM in 0.9 % SODIUM CHLORIDE 250 ML IV ONE (19:00)
[2025-08-16 22:05] LABS: BASO % 0.3 % (0.1-1.2); EOS # 0.16 (0.04-0.54); EOS % 2.0 % (0.7-7.0); LYMPH # 0.59 (1.18-3.74); LYMPH % 7.5 % (19.3-53.1); MEAN PLATELET VOLUME 9.50 fl (9.4-12.4); MONO # 0.99 (0.24-0.82); NEUT # 6.02 (1.56-6.13); NEUT % 76.3 % (34.0-71.1); RED CELL DISTRIBUTION WIDTH 13.3 % (11.6-14.4)
[2025-08-16 22:06] LABS: MONO % 12.5 % (4.7-12.5)
[2025-08-17] VITALS (16 sets, daily range): BP systolic 49–156; BP diastolic 34–87; O2SAT 34–100
[2025-08-17] MEDS ORDERED: PANTOPRAZOLE SODIUM 40 MG/VIAL VIAL ONE (00:32)
[2025-08-17] MEDS ORDERED: SODIUM CL 0.9% 100 ML IV.SOLN IV ONE (09:34)
[2025-08-17] MEDS ORDERED: NOREPINEPHRINE BITARTRATE 1 MG/ML AMPUL IV ONE (10:00)
[2025-08-17 10:12] LABS: BASO % 0.2 % (0.1-1.2); EOS # 0.13 (0.04-0.54); EOS % 1.5 % (0.7-7.0); LYMPH # 0.55 (1.18-3.74); LYMPH % 6.5 % (19.3-53.1); MEAN PLATELET VOLUME 9.90 fl (9.4-12.4); MONO # 0.73 (0.24-0.82); MONO % 8.7 % (4.7-12.5); NEUT # 6.86 (1.56-6.13); NEUT % 81.4 % (34.0-71.1); RED CELL DISTRIBUTION WIDTH 13.2 % (11.6-14.4)
[2025-08-17 10:54] LABS: ALT/SGPT 8.0 U/L (12-78); AST/SGOT 12.0 U/L (15-37); BILIRUBIN TOTAL 0.72 mg/dL (0.3-1.2); BUN CREA RATIO 16.0 (7.0-25.0); CREATININE SERUM 1.02 mg/dL (0.70-1.30); GFR 70.63; GLOBULINA 2.1 G/DL (2.4-3.5); OSMOLALITY SERUM 296.0 MOSM/KG (275-295)
[2025-08-17 10:57] LABS: GLUCOSE FASTING 308.0 mg/dL (65-100)
[2025-08-17] MEDS ORDERED: NOREPINEPHRINE BITARTRATE 8 MG in DEXTROSE 5 % IN WATER 250 ML IV SCH (11:30)
[2025-08-17] MEDS ORDERED: MIDAZOLAM HCL 100 MG in 0.9 % SODIUM CHLORIDE 100 ML IV SCH (11:30)
[2025-08-17 13:33] LABS: ABG PH 7.263 (7.35-7.45); BICARBONATE 26.4 mmol/l (23-25)
[2025-08-17] MEDS ORDERED: 0.9 % SODIUM CHLORIDE 1,000 ML IV ONE (13:45)
[2025-08-17 14:57] LABS: ABG PO2 538.2 mmHg (80-100)
[2025-08-17 14:59] LABS: o2 100 %
[2025-08-17] MEDS ORDERED: CHLORHEXIDINE GLUCONATE 15ML BRUSH KIT MM SCH (17:00)
[2025-08-17] MEDS ORDERED: POLYVINYL ALCOHOL 15 ML DROPS OP SCH (17:00)
[2025-08-18] VITALS (24 sets, daily range): BP systolic 77–170; BP diastolic 49–94; O2SAT 100
[2025-08-18 08:03] LABS: ABG PH 7.515 (7.35-7.45); ABG PO2 166.6 mmHg (80-100); BICARBONATE 29.6 mmol/l (23-25)
[2025-08-18 08:10] LABS: o2 50 %
[2025-08-18 08:36] LABS: BASO % 0.3 % (0.1-1.2); EOS # 0.10 (0.04-0.54); EOS % 1.0 % (0.7-7.0); LYMPH # 0.70 (1.18-3.74); LYMPH % 6.9 % (19.3-53.1); MEAN PLATELET VOLUME 9.90 fl (9.4-12.4); MONO # 1.00 (0.24-0.82); MONO % 9.8 % (4.7-12.5); NEUT # 8.15 (1.56-6.13); NEUT % 80.1 % (34.0-71.1); RED CELL DISTRIBUTION WIDTH 12.9 % (11.6-14.4)
[2025-08-18 09:06] LABS: INR 1.37
[2025-08-18 09:28] LABS: ALT/SGPT 8.0 U/L (12-78); AST/SGOT 10.0 U/L (15-37); BILIRUBIN TOTAL 1.24 mg/dL (0.3-1.2); BUN CREA RATIO 17.0 (7.0-25.0); CREATININE SERUM 1.03 mg/dL (0.70-1.30); GFR 69.84; GLOBULINA 2.0 G/DL (2.4-3.5)
[2025-08-18 11:13] LABS: GLUCOSE FASTING 288.0 mg/dL (65-100); OSMOLALITY SERUM 295.0 MOSM/KG (275-295)
[2025-08-18] MEDS ORDERED: MAGNESIUM SULFATE IN WATER 2 GM/50 ML PIGGYBAG IV NR (12:30)
[2025-08-18] MEDS ORDERED: POTASSIUM PHOS,M-BASIC-D-BASIC 3 MM/ML VIAL IV NR (13:00)
[2025-08-18 14:31] LABS: BASO % 0.2 % (0.1-1.2); EOS # 0.12 (0.04-0.54); EOS % 1.0 % (0.7-7.0); LYMPH # 0.69 (1.18-3.74); LYMPH % 6.0 % (19.3-53.1); MEAN PLATELET VOLUME 9.70 fl (9.4-12.4); MONO # 1.19 (0.24-0.82); MONO % 10.3 % (4.7-12.5); NEUT # 9.38 (1.56-6.13); NEUT % 81.1 % (34.0-71.1); RED CELL DISTRIBUTION WIDTH 13.2 % (11.6-14.4)
[2025-08-19] VITALS (16 sets, daily range): BP systolic 89–151; BP diastolic 43–91; O2SAT 97–100
[2025-08-19] MEDS ORDERED: SODIUM CL 0.9% 250 ML IV.SOLN ONE (08:16)
[2025-08-19 08:34] LABS: BASO % 0.2 % (0.1-1.2); EOS # 0.12 (0.04-0.54); EOS % 1.1 % (0.7-7.0); LYMPH # 0.53 (1.18-3.74); LYMPH % 4.6 % (19.3-53.1); MEAN PLATELET VOLUME 10.00 fl (9.4-12.4); MONO # 1.03 (0.24-0.82); MONO % 9.0 % (4.7-12.5); NEUT # 9.61 (1.56-6.13); NEUT % 84.1 % (34.0-71.1); RED CELL DISTRIBUTION WIDTH 14.1 % (11.6-14.4)
[2025-08-19 09:03] LABS: ABG PH 7.378 (7.35-7.45); ABG PO2 144.2 mmHg (80-100); BICARBONATE 29.4 mmol/l (23-25)
[2025-08-19 09:04] LABS: o2 50 %
[2025-08-19 09:57] LABS: ALT/SGPT 9.0 U/L (12-78); AST/SGOT 10.0 U/L (15-37); BILIRUBIN TOTAL 1.07 mg/dL (0.3-1.2); BUN CREA RATIO 16.0 (7.0-25.0); CREATININE SERUM 0.79 mg/dL (0.70-1.30); GFR 94.86; GLOBULINA 2.1 G/DL (2.4-3.5); OSMOLALITY SERUM 290.0 MOSM/KG (275-295)
[2025-08-19 10:01] LABS: GLUCOSE FASTING 223.0 mg/dL (65-100)
[2025-08-19 11:11] LABS: ABG PH 7.386 (7.35-7.45); ABG PO2 81.8 mmHg (80-100); BICARBONATE 30.2 mmol/l (23-25)
[2025-08-19 11:12] LABS: o2 50 %
[2025-08-19] MEDS ORDERED: AA 5 %/CALCIUM/LYTES/DEXT 20 % 2,000 ML CENTRAL SCH (17:00)
[2025-08-19 17:34] LABS: INR 1.24
[2025-08-19 17:39] LABS: BUN CREA RATIO 15.0 (7.0-25.0); CHOL HDL RATIO 2.0 (0-5.0); CREATININE SERUM 0.8 mg/dL (0.70-1.30); GFR 93.49; GLUCOSE FASTING 150.0 mg/dL (65-100); HDL 37.0 mg/dl (40-60); LDL 25.0 mg/dl (0-130); OSMOLALITY SERUM 291.0 MOSM/KG (275-295); VLDL 12.0 (0-39)
[2025-08-19] MEDS ORDERED: MIDAZOLAM HCL 50 MG in 0.9 % SODIUM CHLORIDE 50 ML IV SCH (19:00)
[2025-08-19] MEDS ORDERED: FAT EMULSIONS 250 ML IV SCH (21:00)
[2025-08-20] VITALS (14 sets, daily range): BP systolic 95–140; BP diastolic 54–94; O2SAT 98–100
[2025-08-20 11:07] LABS: ABG PH 7.431 (7.35-7.45); ABG PO2 98.9 mmHg (80-100); BICARBONATE 34.9 mmol/l (23-25); o2 40 %
[2025-08-20] MEDS ORDERED: PANTOPRAZOLE SODIUM 40 MG/VIAL VIAL IV PUSH SCH (21:00)
[2025-08-21] VITALS (12 sets, daily range): BP systolic 97–139; BP diastolic 59–91; O2SAT 95–100
[2025-08-21 06:51] LABS: BASO % 0.1 % (0.1-1.2); EOS # 0.18 (0.04-0.54); EOS % 1.7 % (0.7-7.0); LYMPH # 0.40 (1.18-3.74); LYMPH % 3.9 % (19.3-53.1); MEAN PLATELET VOLUME 10.20 fl (9.4-12.4); MONO # 1.04 (0.24-0.82); MONO % 10.1 % (4.7-12.5); NEUT # 8.59 (1.56-6.13); NEUT % 83.2 % (34.0-71.1); RED CELL DISTRIBUTION WIDTH 14.0 % (11.6-14.4)
[2025-08-21 07:18] LABS: ALT/SGPT 10.0 U/L (12-78); AST/SGOT 7.0 U/L (15-37); BILIRUBIN TOTAL 0.66 mg/dL (0.3-1.2); BUN CREA RATIO 25.0 (7.0-25.0); CREATININE SERUM 0.63 mg/dL (0.70-1.30); GFR 123.17; GLOBULINA 2.3 G/DL (2.4-3.5); OSMOLALITY SERUM 299.0 MOSM/KG (275-295)
[2025-08-21 07:19] LABS: GLUCOSE FASTING 333.0 mg/dL (65-100)
[2025-08-21] MEDS ORDERED: POTASSIUM CHLORIDE IN WATER 40 MEQ/100 ML PIGGYBAG IV SCH (10:00)
[2025-08-21 14:08] LABS: ABG PH 7.490 (7.35-7.45); ABG PO2 120.9 mmHg (80-100); BICARBONATE 35.9 mmol/l (23-25)
[2025-08-21 14:09] LABS: o2 50 %
[2025-08-21] MEDS ORDERED: INSULIN GLARGINE,HUM.REC.ANLOG 1,000 UNITS/10 ML UNITS SUBCUTANEO SCH (21:00)
[2025-08-22] VITALS (11 sets, daily range): BP systolic 87–129; BP diastolic 45–80; O2SAT 98–100
[2025-08-22] MEDS ORDERED: INSULIN LISPRO 1,000 UNIT/10 ML UNITS SUBCUTANEO ONE (03:45)
[2025-08-22 07:47] LABS: ABG PH 7.423 (7.35-7.45)
[2025-08-22 07:48] LABS: ABG PO2 59.5 mmHg (80-100); BICARBONATE 35.3 mmol/l (23-25)
[2025-08-22 07:49] LABS: o2 50 %
[2025-08-22] MEDS ORDERED: RINGERS SOLUTION,LACTATED 1,000 ML IV ONE (08:15)
[2025-08-22 08:39] LABS: BASO % 0.1 % (0.1-1.2); EOS # 0.01 (0.04-0.54); EOS % 0.1 % (0.7-7.0); LYMPH # 0.24 (1.18-3.74); LYMPH % 2.8 % (19.3-53.1); MEAN PLATELET VOLUME 10.30 fl (9.4-12.4); MONO # 0.95 (0.24-0.82); MONO % 10.9 % (4.7-12.5); NEUT # 7.45 (1.56-6.13); NEUT % 85.6 % (34.0-71.1); RED CELL DISTRIBUTION WIDTH 14.4 % (11.6-14.4)
[2025-08-22] MEDS ORDERED: NOREPINEPHRINE BITARTRATE 8 MG in DEXTROSE 5 % IN WATER 250 ML IV SCH (10:30)
[2025-08-22 15:47] LABS: ABG PH 7.426 (7.35-7.45); ABG PO2 94.2 mmHg (80-100); BICARBONATE 24.3 mmol/l (23-25); o2 50 %
[2025-08-22] MEDS ORDERED: HYDROCORTISONE SODIUM SUCC/PF 100 MG VIAL IV SCH (20:00)
[2025-08-22] MEDS ORDERED: POTASSIUM CHLORIDE IN WATER 40 MEQ/100 ML PIGGYBAG IV NR (20:00)
[2025-08-22] MEDS ORDERED: MAGNESIUM SULFATE IN WATER 50 ML IV SCH (20:00)
[2025-08-22 20:41] LABS: BASO % 0.2 % (0.1-1.2); EOS # 0.09 (0.04-0.54); EOS % 0.8 % (0.7-7.0); LYMPH # 0.50 (1.18-3.74); LYMPH % 4.3 % (19.3-53.1); MEAN PLATELET VOLUME 10.50 fl (9.4-12.4); MONO # 1.31 (0.24-0.82); MONO % 11.2 % (4.7-12.5); NEUT # 9.72 (1.56-6.13); NEUT % 82.6 % (34.0-71.1); RED CELL DISTRIBUTION WIDTH 14.6 % (11.6-14.4)
[2025-08-23] VITALS (12 sets, daily range): BP systolic 90–109; BP diastolic 56–72; O2SAT 99–100
[2025-08-23] MEDS ORDERED: MIDAZOLAM HCL 50 MG in 0.9 % SODIUM CHLORIDE 50 ML IV SCH (05:00)
[2025-08-23] MEDS ORDERED: DEXTROSE 50 % IN WATER 0.5 G/ML VIAL IV ONE (07:50)
[2025-08-23] MEDS ORDERED: PROPOFOL 100 ML IV SCH (08:45)
[2025-08-23] MEDS ORDERED: INSULIN GLARGINE,HUM.REC.ANLOG 1,000 UNITS/10 ML UNITS SUBCUTANEO SCH (09:00)
[2025-08-23 11:34] LABS: ABG PH 7.503 (7.35-7.45)
[2025-08-23 11:35] LABS: ABG PO2 107.3 mmHg (80-100); BICARBONATE 33.7 mmol/l (23-25)
[2025-08-23 11:36] LABS: o2 50 %
[2025-08-23] MEDS ORDERED: DEXTROSE 5 % AND 0.9 % NACL 1,000 ML IV SCH (12:45)
[2025-08-23] MEDS ORDERED: DEXTROSE 50 % IN WATER 0.5 G/ML VIAL IV PRN (15:30)
[2025-08-23] MEDS ORDERED: INSULIN LISPRO 1,000 UNIT/10 ML UNITS SUBCUTANEO PRN (15:30)
[2025-08-23] MEDS ORDERED: MEROPENEM 500 MG in 0.9 % SODIUM CHLORIDE 50 ML IV SCH (20:00)
[2025-08-24] VITALS (15 sets, daily range): BP systolic 95–118; BP diastolic 62–76; O2SAT 95–100
[2025-08-24 07:28] LABS: BASO % 0.1 % (0.1-1.2); EOS # 0.00 (0.04-0.54); EOS % 0.0 % (0.7-7.0); LYMPH # 0.26 (1.18-3.74); LYMPH % 2.2 % (19.3-53.1); MEAN PLATELET VOLUME 10.90 fl (9.4-12.4); MONO # 0.76 (0.24-0.82); MONO % 6.4 % (4.7-12.5); NEUT # 10.77 (1.56-6.13); NEUT % 90.0 % (34.0-71.1); RED CELL DISTRIBUTION WIDTH 14.1 % (11.6-14.4)
[2025-08-24 10:30] LABS: ABG PH 7.524 (7.35-7.45); ABG PO2 56.3 mmHg (80-100)
[2025-08-24 10:31] LABS: BICARBONATE 29.8 mmol/l (23-25)
[2025-08-24 10:33] LABS: o2 50 %
[2025-08-24 11:13] LABS: AST/SGOT 7 U/L (15-37); BILIRUBIN TOTAL 0.96 mg/dL (0.3-1.2); BUN CREA RATIO 24 (7.0-25.0); CREATININE SERUM 1.07 mg/dL (0.70-1.30); GFR 66.84; GLOBULINA 2.8 G/DL (2.4-3.5)
[2025-08-24 11:14] LABS: ALT/SGPT < 6 U/L (12-78); GLUCOSE FASTING 291 mg/dL (65-100); OSMOLALITY SERUM 297 MOSM/KG (275-295)
[2025-08-24] MEDS ORDERED: INSULIN GLARGINE,HUM.REC.ANLOG 1,000 UNITS/10 ML UNITS SUBCUTANEO SCH (17:00)
[2025-08-24] MEDS ORDERED: MEROPENEM 500 MG in 0.9 % SODIUM CHLORIDE 50 ML IV SCH (17:00)
[2025-08-25] VITALS (12 sets, daily range): BP systolic 83–130; BP diastolic 49–81; O2SAT 97–100
[2025-08-25 08:18] LABS: ABG PH 7.554 (7.35-7.45); ABG PO2 87.2 mmHg (80-100); BICARBONATE 29.9 mmol/l (23-25)
[2025-08-25 08:25] LABS: o2 50 %
[2025-08-25] MEDS ORDERED: VANCOMYCIN HCL 1,000 MG VIAL ONE (12:49)
[2025-08-25] MEDS ORDERED: VANCOMYCIN HCL 1,000 MG VIAL IV NR (13:00)
[2025-08-25] MEDS ORDERED: LEVALBUTEROL HCL 0.63 MG/3 ML SOLUTION IH ONE (14:33)
[2025-08-25] MEDS ORDERED: LEVALBUTEROL HCL 0.63 MG/3 ML SOLUTION IH SCH (17:16)
[2025-08-25 17:26] LABS: ABG PH 7.416 (7.35-7.45); ABG PO2 85.4 mmHg (80-100); BICARBONATE 30.5 mmol/l (23-25)
[2025-08-25 23:33] LABS: o2 32 %
[2025-08-26 04:00] VITALS: BP 147/92; O2SAT 100
[2025-08-26 06:42] LABS: BASO % 0.1 % (0.1-1.2); EOS # 0.00 (0.04-0.54); EOS % 0.0 % (0.7-7.0); LYMPH # 0.19 (1.18-3.74); LYMPH % 2.2 % (19.3-53.1); MEAN PLATELET VOLUME 9.80 fl (9.4-12.4); MONO # 0.66 (0.24-0.82); MONO % 7.6 % (4.7-12.5); NEUT # 7.83 (1.56-6.13); NEUT % 89.6 % (34.0-71.1); RED CELL DISTRIBUTION WIDTH 14.1 % (11.6-14.4)
[2025-08-26 07:13] VITALS: BP 145/79; O2SAT 97
[2025-08-26 07:17] LABS: ALT/SGPT 8.0 U/L (12-78); AST/SGOT 12.0 U/L (15-37); BILIRUBIN TOTAL 1.16 mg/dL (0.3-1.2); BUN CREA RATIO 23.0 (7.0-25.0); CREATININE SERUM 1.07 mg/dL (0.70-1.30); GFR 66.84; GLOBULINA 3.3 G/DL (2.4-3.5); GLUCOSE FASTING 193.0 mg/dL (65-100); OSMOLALITY SERUM 296.0 MOSM/KG (275-295)
[2025-08-26] MEDS ORDERED: VANCOMYCIN HCL 1,000 MG VIAL ONE (08:06)
[2025-08-26] MEDS ORDERED: VANCOMYCIN HCL 1,000 MG VIAL IV SCH (09:00)
[2025-08-26] MEDS ORDERED: HYDROCORTISONE SODIUM SUCC/PF 50 MG/ML ML IV SCH (14:00)
[2025-08-26 15:10] VITALS: BP 141/76; O2SAT 99
[2025-08-26 20:42] VITALS: BP 126/64; O2SAT 100
[2025-08-26 23:39] VITALS: BP 142/83; O2SAT 98
[2025-08-27] VITALS (7 sets, daily range): BP systolic 104–150; BP diastolic 63–89; O2SAT 96–100
[2025-08-27] MEDS ORDERED: VANCOMYCIN HCL 1,000 MG VIAL ONE (07:16)
[2025-08-27] MEDS ORDERED: INSULIN NPH HUMAN ISOPHANE 1,000 UNITS/10 ML UNITS SUBCUTANEO SCH (09:00)
[2025-08-27] MEDS ORDERED: GLYCERIN 2.1 GM SUPP.RECT RECTAL NR (13:15)
[2025-08-27 23:24] LABS: ob POSITIVE (NEGATIVE)
[2025-08-28 04:00] VITALS: BP 156/76; O2SAT 100
[2025-08-28] MEDS ORDERED: SODIUM CHLORIDE 0.45 % 1,000 ML IV SCH (06:15)
[2025-08-28 07:07] VITALS: BP 163/92; O2SAT 97
[2025-08-28] MEDS ORDERED: VANCOMYCIN HCL 1,000 MG VIAL ONE (07:54)
[2025-08-28] MEDS ORDERED: CLONAZEPAM 0.5 MG TABLET PO ONE (10:30)
[2025-08-28 11:07] LABS: BASO % 0.0 % (0.1-1.2); EOS # 0.03 (0.04-0.54); EOS % 0.3 % (0.7-7.0); LYMPH # 0.48 (1.18-3.74); LYMPH % 4.2 % (19.3-53.1); MEAN PLATELET VOLUME 9.60 fl (9.4-12.4); MONO # 0.95 (0.24-0.82); MONO % 8.4 % (4.7-12.5); NEUT # 9.80 (1.56-6.13); NEUT % 86.3 % (34.0-71.1); RED CELL DISTRIBUTION WIDTH 13.7 % (11.6-14.4)
[2025-08-28 11:19] LABS: ERYTHROCYTE SEDIMENTATION RATE 6 mm/hr (0-20)
[2025-08-28 11:42] LABS: INR 1.11
[2025-08-28 11:45] LABS: ALT/SGPT 12.0 U/L (12-78); AST/SGOT 16.0 U/L (15-37); BILIRUBIN TOTAL 1.0 mg/dL (0.3-1.2); BUN CREA RATIO 18.0 (7.0-25.0); CREATININE SERUM 0.79 mg/dL (0.70-1.30); GFR 94.86; GLOBULINA 3.2 G/DL (2.4-3.5); GLUCOSE FASTING 154.0 mg/dL (65-100); OSMOLALITY SERUM 294.0 MOSM/KG (275-295)
[2025-08-28 12:00] VITALS: BP 132/69; O2SAT 95
[2025-08-28 15:46] VITALS: BP 130/78; O2SAT 100
[2025-08-28 20:24] VITALS: BP 132/78; O2SAT 99
[2025-08-28] MEDS ORDERED: INSULIN NPH HUMAN ISOPHANE 1,000 UNITS/10 ML UNITS SUBCUTANEO SCH (21:00)
[2025-08-28 23:27] VITALS: BP 132/87; O2SAT 100
[2025-08-29] VITALS (7 sets, daily range): BP systolic 122–177; BP diastolic 59–95; O2SAT 97–100
[2025-08-29] MEDS ORDERED: VANCOMYCIN HCL 1,000 MG VIAL ONE (07:16)
[2025-08-29] MEDS ORDERED: LORazepam 2 MG/ML VIAL ONE (13:11)
[2025-08-29] MEDS ORDERED: LORazepam 2 MG/ML VIAL IV ONE (14:30)
[2025-08-29 15:30] LABS: BASO % 0.2 % (0.1-1.2); EOS # 0.10 (0.04-0.54); EOS % 0.9 % (0.7-7.0); LYMPH # 0.34 (1.18-3.74); LYMPH % 3.2 % (19.3-53.1); MEAN PLATELET VOLUME 9.60 fl (9.4-12.4); MONO # 0.63 (0.24-0.82); MONO % 5.9 % (4.7-12.5); NEUT # 9.50 (1.56-6.13); NEUT % 89.4 % (34.0-71.1); RED CELL DISTRIBUTION WIDTH 13.8 % (11.6-14.4)
[2025-08-30 04:00] VITALS: BP 161/95; O2SAT 97
[2025-08-30] MEDS ORDERED: MEROPENEM 500 MG in 0.9 % SODIUM CHLORIDE 50 ML IV SCH (06:00)
[2025-08-30 07:24] VITALS: BP 133/78; O2SAT 100
[2025-08-30] MEDS ORDERED: VANCOMYCIN HCL 1,000 MG VIAL ONE (08:14)
[2025-08-30 12:00] VITALS: BP 127/62; O2SAT 96
[2025-08-30 12:53] LABS: BUN CREA RATIO 17.0 (7.0-25.0); CHOL HDL RATIO 2.4 (0-5.0); CREATININE SERUM 0.58 mg/dL (0.70-1.30); GFR 135.5; GLUCOSE FASTING 179.0 mg/dL (65-100); HDL 57.0 mg/dl (40-60); LDL 59.0 mg/dl (0-130); OSMOLALITY SERUM 285.0 MOSM/KG (275-295); VLDL 19.0 (0-39)
[2025-08-30 15:29] VITALS: BP 127/62; O2SAT 96
[2025-08-30] MEDS ORDERED: AA 4.25%/CAL/LYTES/DEXT 5% 1,000 ML PERIFERAL SCH (17:00)
[2025-08-30 20:12] VITALS: BP 120/65; O2SAT 100
[2025-08-30] MEDS ORDERED: POTASSIUM CHLORIDE IN WATER 40 MEQ/100 ML PIGGYBAG IV ONE (23:00)
[2025-08-30 23:10] VITALS: BP 158/89; O2SAT 98
[2025-08-31 04:00] VITALS: BP 144/82; O2SAT 100
[2025-08-31 07:10] VITALS: BP 138/78; O2SAT 100
[2025-08-31 07:48] LABS: BASO % 0.0 % (0.1-1.2); EOS # 0.09 (0.04-0.54); EOS % 1.0 % (0.7-7.0); LYMPH # 0.28 (1.18-3.74); LYMPH % 3.1 % (19.3-53.1); MEAN PLATELET VOLUME 9.90 fl (9.4-12.4); MONO # 0.44 (0.24-0.82); MONO % 4.9 % (4.7-12.5); NEUT # 8.10 (1.56-6.13); NEUT % 90.6 % (34.0-71.1); RED CELL DISTRIBUTION WIDTH 13.2 % (11.6-14.4)
[2025-08-31 08:13] LABS: BUN CREA RATIO 20.0 (7.0-25.0); CREATININE SERUM 0.55 mg/dL (0.70-1.30); GFR 144.07; GLUCOSE FASTING 178.0 mg/dL (65-100); OSMOLALITY SERUM 285.0 MOSM/KG (275-295)
[2025-08-31] MEDS ORDERED: VANCOMYCIN HCL 5 MG/ML REDILUIDO IV SCH (09:00)
[2025-08-31 12:00] VITALS: BP 148/82; O2SAT 100
[2025-08-31] MEDS ORDERED: POTASSIUM PHOS,M-BASIC-D-BASIC 3 MM/ML VIAL IV NR (13:00)
[2025-08-31 15:39] VITALS: BP 148/87; O2SAT 100
[2025-08-31] MEDS ORDERED: MAGNESIUM SULFATE 50% 1,000 MG/2 ML VIAL IV ONE (18:45)
[2025-08-31] MEDS ORDERED: POTASSIUM CHLORIDE 20MEQ/100ML H2O PB IV ONE (18:45)
[2025-08-31 20:00] VITALS: BP 137/79; O2SAT 100
[2025-08-31] MEDS ORDERED: GALANTAMINE 8 MG PO SCH (21:00)
[2025-08-31] MEDS ORDERED: FAT EMULSIONS 250 ML IV SCH (21:00)
[2025-08-31] MEDS ORDERED: POTASSIUM CHLORIDE IN WATER 40 MEQ/100 ML PIGGYBAG IV ONE (21:45)
[2025-08-31 23:00] VITALS: BP 129/85; BP 154/81; O2SAT 99
[2025-09-01 07:28] LABS: BASO % 0.1 % (0.1-1.2); EOS # 0.21 (0.04-0.54); EOS % 2.3 % (0.7-7.0); LYMPH # 0.22 (1.18-3.74); LYMPH % 2.4 % (19.3-53.1); MEAN PLATELET VOLUME 10.50 fl (9.4-12.4); MONO # 0.58 (0.24-0.82); MONO % 6.4 % (4.7-12.5); NEUT # 8.03 (1.56-6.13); NEUT % 88.1 % (34.0-71.1); RED CELL DISTRIBUTION WIDTH 13.2 % (11.6-14.4)
[2025-09-01 07:37] VITALS: BP 158/89; O2SAT 99
[2025-09-01 07:49] LABS: ALT/SGPT 9.0 U/L (12-78); AST/SGOT 13.0 U/L (15-37); BILIRUBIN TOTAL 1.46 mg/dL (0.3-1.2); BUN CREA RATIO 21.0 (7.0-25.0); CREATININE SERUM 0.53 mg/dL (0.70-1.30); GFR 150.36; GLOBULINA 3.4 G/DL (2.4-3.5)
[2025-09-01 07:53] LABS: OSMOLALITY SERUM 287.0 MOSM/KG (275-295)
[2025-09-01 07:54] LABS: GLUCOSE FASTING 255.0 mg/dL (65-100)
[2025-09-01] MEDS ORDERED: PATIENTS OWN MEDICATION (MEDICAMENTO EN PISO) PO SCH (09:00)
[2025-09-01] MEDS ORDERED: POTASSIUM PHOS,M-BASIC-D-BASIC 3 MM/ML VIAL IV NR (10:15)
[2025-09-01 12:00] VITALS: BP 133/95; O2SAT 96
[2025-09-01] MEDS ORDERED: MEROPENEM 500 MG/VIAL VIAL IV ONE (12:31)
[2025-09-01 15:17] VITALS: BP 143/84; O2SAT 100
[2025-09-01 20:24] VITALS: BP 148/87; O2SAT 100
[2025-09-01 23:13] VITALS: BP 147/79; O2SAT 99
[2025-09-02 03:58] VITALS: BP 148/90; O2SAT 100
[2025-09-02 06:55] LABS: BASO % 0.1 % (0.1-1.2); EOS # 0.20 (0.04-0.54); EOS % 2.1 % (0.7-7.0); LYMPH # 0.22 (1.18-3.74); LYMPH % 2.3 % (19.3-53.1); MEAN PLATELET VOLUME 9.90 fl (9.4-12.4); MONO # 0.60 (0.24-0.82); MONO % 6.3 % (4.7-12.5); NEUT # 8.43 (1.56-6.13); NEUT % 88.8 % (34.0-71.1); RED CELL DISTRIBUTION WIDTH 13.6 % (11.6-14.4)
[2025-09-02 07:00] VITALS: BP 136/93; O2SAT 99
[2025-09-02 07:16] LABS: INR 1.14
[2025-09-02 07:26] LABS: ALT/SGPT 10.0 U/L (12-78); AST/SGOT 9.0 U/L (15-37); BILIRUBIN TOTAL 1.74 mg/dL (0.3-1.2); BILIRUBIN,CONJUGATED 0.44 mg/dL (0.0-0.2); BUN CREA RATIO 19.0 (7.0-25.0); CHOL HDL RATIO 2.4 (0-5.0); CREATININE SERUM 0.53 mg/dL (0.70-1.30); GFR 150.36; GLOBULINA 3.2 G/DL (2.4-3.5); GLUCOSE FASTING 234.0 mg/dL (65-100); HDL 58.0 mg/dl (40-60); LDL 64.0 mg/dl (0-130); OSMOLALITY SERUM 288.0 MOSM/KG (275-295); VLDL 20.0 (0-39)
[2025-09-02 07:54] LABS: CREATININE URINE 14.4 MG/DL; URINE PROT QUANT 24HR 38.4 MG/DL
[2025-09-02 08:14] LABS: URINE PROT QUANT 24 HR 1392.0 MG/24HR (42-225)
[2025-09-02 08:16] LABS: CREATINE CLEARANCE 68.5 ML/MIN (97-137); CREATININE SERUM 0.53 mg/dL (0.8-1.3)
[2025-09-02 08:17] LABS: UREA CLEARANCE 48.4 ML/MIN
[2025-09-02] MEDS ORDERED: SOD FERRIC GLUC COMPLX/SUCROSE 125 MG in 0.9 % SODIUM CHLORIDE 100 ML IV SCH (09:45)
[2025-09-02] MEDS ORDERED: hydrALAZINE HCL 20 MG VIAL IV PRN (09:45)
[2025-09-02] MEDS ORDERED: DILTIAZEM HCL 30 MG TABLET PO SCH (09:46)
[2025-09-02] MEDS ORDERED: LISINOPRIL 10 MG TABLET PO SCH (10:00)
[2025-09-02 12:00] VITALS: BP 148/76; O2SAT 100
[2025-09-02] MEDS ORDERED: MAGNESIUM SULFATE IN WATER 50 ML IV SCH (12:00)
[2025-09-02 16:04] VITALS: BP 111/95; O2SAT 99
[2025-09-02] MEDS ORDERED: POTASSIUM PHOS,M-BASIC-D-BASIC 18 MM in 0.9 % SODIUM CHLORIDE 250 ML IV NR (17:00)
[2025-09-02 20:00] VITALS: BP 138/77; O2SAT 100
[2025-09-02 23:31] VITALS: BP 145/86; O2SAT 97
[2025-09-03 04:00] VITALS: BP 144/78; O2SAT 94
[2025-09-03] MEDS ORDERED: 0.9 % SODIUM CHLORIDE 1,000 ML IV SCH (06:45)
[2025-09-03 07:03] VITALS: BP 144/94; O2SAT 100
[2025-09-03] MEDS ORDERED: IPRATROPIUM BROMIDE 0.5 MG/2.5 ML AMPUL.NEB IH SCH (09:00)
[2025-09-03] MEDS ORDERED: PANTOPRAZOLE SODIUM 40 MG/VIAL VIAL IV PUSH SCH (09:00)
[2025-09-03] MEDS ORDERED: INSULIN GLARGINE,HUM.REC.ANLOG 1,000 UNITS/10 ML UNITS SUBCUTANEO SCH (09:00)
[2025-09-03 12:11] VITALS: BP 102/52; O2SAT 100
[2025-09-03 15:29] VITALS: BP 129/76; O2SAT 100
[2025-09-04 02:43] VITALS: BP 137/79; O2SAT 96
[2025-09-04 06:14] LABS: BASO % 0.3 % (0.1-1.2); EOS # 0.29 (0.04-0.54); EOS % 3.7 % (0.7-7.0); LYMPH # 0.23 (1.18-3.74); LYMPH % 3.0 % (19.3-53.1); MEAN PLATELET VOLUME 10.20 fl (9.4-12.4); MONO # 0.58 (0.24-0.82); MONO % 7.5 % (4.7-12.5); NEUT # 6.61 (1.56-6.13); NEUT % 85.1 % (34.0-71.1); RED CELL DISTRIBUTION WIDTH 13.9 % (11.6-14.4)
[2025-09-04 07:06] LABS: BUN CREA RATIO 16.0 (7.0-25.0); CREATININE SERUM 0.63 mg/dL (0.70-1.30); GFR 123.17; GLUCOSE FASTING 191.0 mg/dL (65-100); OSMOLALITY SERUM 289.0 MOSM/KG (275-295)
[2025-09-04 08:56] VITALS: BP 160/77
[2025-09-04] MEDS ORDERED: PANTOPRAZOLE SODIUM 40 MG TABLET.DR PO SCH (11:12)
[2025-09-04 20:09] VITALS: BP 124/75
[2025-09-05 01:29] VITALS: BP 166/74; O2SAT 95
[2025-09-05 09:07] VITALS: BP 156/82; O2SAT 97
[2025-09-05] MEDS ORDERED: LISINOPRIL10 MG PO (12:19)
[2025-09-05] MEDS ORDERED: GALANTAMINE PO (12:20)
[2025-09-05] MEDS ORDERED: CARDIZEM30 MG PO (12:23)
[2025-09-05] MEDS ORDERED: PROTONIX40 MG PO (12:24)
[2025-09-05] MEDS ORDERED: PROTECT IRON T1 EACH PO (12:25)
== END 2025-09-05 17:23 | disposition home or self-care (01) | DRG 377 ==
LOC: ER 13:21 → SURH 22:16 → ICU 08-15 15:15 → MEDI 09-03 19:07 → MEDJ 09-03 19:22
PROVIDERS: Emergency Medicine; General Practice; Internal Medicine; Surgery; ADMIT Internal Medicine; ATTEND Internal Medicine
PROC: BW21ZZZ Computerized Tomography (CT Scan) of Abdomen and Pelvis (ICD-10-PCS; 2025-08-11)
PROC: 4A12X4Z Monitoring of Cardiac Electrical Activity, External Approach (ICD-10-PCS; 2025-08-13)
PROC: 30243N1 Transfusion of Nonautologous Red Blood Cells into Central Vein, Percutaneous Approach (ICD-10-PCS; 2025-08-13)
PROC: BW21YZZ Computerized Tomography (CT Scan) of Abdomen and Pelvis using Other Contrast (ICD-10-PCS; 2025-08-14)
PROC: 02HV33Z Insertion of Infusion Device into Superior Vena Cava, Percutaneous Approach (ICD-10-PCS; 2025-08-14)
PROC: CD171ZZ Planar Nuclear Medicine Imaging of Gastrointestinal Tract using Technetium 99m (Tc-99m) (ICD-10-PCS; 2025-08-15)
PROC: B34KZZZ Ultrasonography of Bilateral Upper Extremity Arteries (ICD-10-PCS; 2025-08-19)
PROC: 0BH18EZ Insertion of Endotracheal Airway into Trachea, Via Natural or Artificial Opening Endoscopic (ICD-10-PCS; principal; 2025-08-20)
PROC: 5A1955Z Respiratory Ventilation, Greater than 96 Consecutive Hours (ICD-10-PCS; 2025-08-20)
PROC: BW21ZZZ Computerized Tomography (CT Scan) of Abdomen and Pelvis (ICD-10-PCS; 2025-08-21)
PROC: BW24YZZ Computerized Tomography (CT Scan) of Chest and Abdomen using Other Contrast (ICD-10-PCS; 2025-08-22)
PROC: BW24ZZZ Computerized Tomography (CT Scan) of Chest and Abdomen (ICD-10-PCS; 2025-08-29)
PROC: BW21ZZZ Computerized Tomography (CT Scan) of Abdomen and Pelvis (ICD-10-PCS; 2025-08-29)
PROC: CD171ZZ Planar Nuclear Medicine Imaging of Gastrointestinal Tract using Technetium 99m (Tc-99m) (ICD-10-PCS; 2025-08-30)
DX: K62.5 Hemorrhage of anus and rectum (principal); A41.9 Sepsis, unspecified organism; J96.00 Acute respiratory failure, unspecified whether with hypoxia or hypercapnia; R57.1 Hypovolemic shock; J90 Pleural effusion, not elsewhere classified; N17.9 Acute kidney failure, unspecified; I82.401 Acute embolism and thrombosis of unspecified deep veins of right lower extremity; I10 Essential (primary) hypertension; E11.9 Type 2 diabetes mellitus without complications; Z79.4 Long term (current) use of insulin; D64.9 Anemia, unspecified; I95.9 Hypotension, unspecified; G30.9 Alzheimer's disease, unspecified; F02.80 Dementia in other diseases classified elsewhere, unspecified severity, without behavioral disturbance, psychotic disturbance, mood disturbance, and anxiety; K37 Unspecified appendicitis; K52.9 Noninfective gastroenteritis and colitis, unspecified